=== PATIENT | female | born 1950 | race Caucasian/White ===

== ENCOUNTER 2021-12-23 05:57 | Observation (INO) ==
[2021-12-23] MEDS ORDERED: ASPIRIN CHEW 81 MG TABLET PO STA (06:06)
[2021-12-23] MEDS ORDERED: NITROGLYCERIN 2% OINT 1 INCH/GM PACK TOP STA (06:06)
[2021-12-23] MEDS ORDERED: MORPHINE 10 MG/1 ML VIAL IV STA (06:07)
[2021-12-23] MEDS ORDERED: ONDANSETRON 4 MG/2 ML VIAL IV STA (06:07)
[2021-12-23] MEDS ORDERED: MORPHINE 2 MG/1 ML SYRINGE IV STA (06:08)
[2021-12-23 06:36] LABS: Basophils # 0.1 10*3/uL (0.0-0.2); Basophils % 0.8 % (0.0-0.8); Eosinophils # 0.2 10*3/uL (0.0-0.87); Eosinophils % 2.5 % (0.00-10.9); Hematocrit 39.2 VOL% (35.7-47.0); Hemoglobin 13.8 GM/DL (12.0-16.0); Immature Granulocytes % 0.3 %; Immature Granulocytes Absolute 0.02 #; Lymphocytes # 2.3 10*3/uL (1.4-4.0); Lymphocytes % 29.1 % (21.3-54.2); Mean Corpuscular HGB Conc 35.2 GM/DL (32-36); Monocytes # 0.8 10*3/uL (0.11-0.8); Monocytes % 10.4 % (1.7-12.7); Neutrophils % 56.9 % (38.7-73.9); Platelet Count 153 T/CUMM (130-400); Red Blood Count 3.88 MC/CUMM (3.8-5.5); Red Cell Distribution Width 13.5 % (9.3-17.3)
[2021-12-23 06:53] LABS: INR 1.1; PT Patient Result 11.6 SECS (10.5-12.0); Partial Thromboplastin Time 23.7 SECS (23.8-32.1)
[2021-12-23 06:58] LABS: Albumin 3.6 G/DL (3.4-5.0); Bilirubin,Total 0.8 MG/DL (0.20-1.00); Calcium 8.9 MG/DL (8.5-10.1); Osmolality,Calculated 268.4 MOS/KG (273-304); Potassium 4.4 MMOL/L (3.5-5.1)
[2021-12-23] MEDS ORDERED: ONDANSETRON 4 MG/2 ML VIAL IV PRN (07:38)
[2021-12-23] MEDS ORDERED: GLUCAGON 1 MG VIAL IM PRN (07:38)
[2021-12-23 08:12] LABS: RBC,Urine 1 /HPF (0-4); Squamous Epithelial Cell,Urine Occasional /HPF (0-10)
[2021-12-23 08:13] LABS: Bilirubin,Urine Negative (Negative); Blood, Urine Negative (Negative); Glucose,Urine (UA) Negative (Negative); Ketones,Urine Negative (Negative); Nitrite,Urine Negative (Negative); Protein,Urine Negative (Negative); Urine Appearance Clear (Clear); Urine Color Yellow (Yellow); Urine Specific Gravity 1.015 (1.001-1.035); Urine Urobilinogen 0.2 eU/dL (<2.0)
[2021-12-23] MEDS ORDERED: DEXTROSE 10% 250 ML BAG IV PRN (08:18)
[2021-12-23] MEDS: DOCUSATE SODIUM 100 MG CAPSULE PO SCH ×2 (08:43→20:55)
[2021-12-23] MEDS: PANTOPRAZOLE 40 MG TABLET PO SCH (08:44)
[2021-12-23] MEDS: POLYETHYLENE GLYCOL POWDER 17 GM PACK PO SCH (09:01)
[2021-12-23] MEDS: NICOTINE 21 MG/24 HR PATCH TRANSDERM SCH (09:01)
[2021-12-23] MEDS ORDERED: FUROSEMIDE 40 MG/4 ML VIAL IV ONE (10:32)
[2021-12-23] MEDS: carvediloL 3.125 MG TABLET PO SCH ×2 (11:25→20:55)
[2021-12-23] MEDS: lisinopriL 20 MG TABLET PO SCH (11:25)
[2021-12-23] MEDS: traZODone 50 MG TABLET PO SCH (20:55)
[2021-12-23] MEDS: APIXABAN 2.5 MG TABLET PO SCH (20:55)
[2021-12-23] MEDS: risperiDONE 0.5 MG TABLET PO SCH (21:13)
[2021-12-24 04:36] LABS: Basophils # 0.1 10*3/uL (0.0-0.2); Basophils % 0.7 % (0.0-0.8); Eosinophils # 0.2 10*3/uL (0.0-0.87); Eosinophils % 2.9 % (0.00-10.9); Immature Granulocytes % 0.4 %; Immature Granulocytes Absolute 0.03 #; Lymphocytes # 1.7 10*3/uL (1.4-4.0); Lymphocytes % 24.5 % (21.3-54.2); Mean Corpuscular HGB Conc 34.3 GM/DL (32-36); Mean Corpuscular Volume 101.7 FL (87-102); Mean Platelet Volume 10.2 FL (9.6-12.0); Monocytes # 0.8 10*3/uL (0.11-0.8); Monocytes % 11.7 % (1.7-12.7); Neutrophils % 59.8 % (38.7-73.9); Platelet Count 143 T/CUMM (130-400); Red Blood Count 3.44 MC/CUMM (3.8-5.5); Red Cell Distribution Width 13.5 % (9.3-17.3)
[2021-12-24 05:05] LABS: Calcium 8.9 MG/DL (8.5-10.1); Osmolality,Calculated 269.2 MOS/KG (273-304); Potassium 3.7 MMOL/L (3.5-5.1)
[2021-12-24] MEDS ORDERED: FUROSEMIDE 40 MG/4 ML VIAL IV SCH (09:00)
[2021-12-24] MEDS: DOCUSATE SODIUM 100 MG CAPSULE PO SCH ×2 (09:58→20:12)
[2021-12-24] MEDS: POLYETHYLENE GLYCOL POWDER 17 GM PACK PO SCH (09:59)
[2021-12-24] MEDS: PANTOPRAZOLE 40 MG TABLET PO SCH (09:59)
[2021-12-24] MEDS: lisinopriL 20 MG TABLET PO SCH (09:59)
[2021-12-24] MEDS: carvediloL 3.125 MG TABLET PO SCH (09:59)
[2021-12-24] MEDS: APIXABAN 2.5 MG TABLET PO SCH ×2 (09:59→20:14)
[2021-12-24] MEDS: ROSUVASTATIN 10 MG TABLET PO SCH (09:59)
[2021-12-24] MEDS: NICOTINE 21 MG/24 HR PATCH TRANSDERM SCH ×2 (10:00→16:16)
[2021-12-24] MEDS: risperiDONE 0.25 MG TABLET PO SCH (10:02)
[2021-12-24] MEDS: ACETAMINOPHEN 325 MG TABLET PO PRN ×2 (10:03→20:13)
[2021-12-24] MEDS ORDERED: MAGNESIUM CITRATE 300 ML BOTTLE PO ONE (17:00)
[2021-12-24] MEDS: risperiDONE 0.5 MG TABLET PO SCH (20:12)
[2021-12-24] MEDS: carvediloL 6.25 MG TABLET PO SCH (20:12)
[2021-12-24] MEDS: traZODone 50 MG TABLET PO SCH (20:13)
[2021-12-25] MEDS ORDERED: MIDAZOLAM 10 MG/2 ML VIAL ONE (07:09)
[2021-12-25] MEDS ORDERED: MEPERIDINE 25 MG/1 ML VIAL ONE (07:09)
[2021-12-25] MEDS ORDERED: MIDAZOLAM 10 MG/2 ML VIAL IV ONE (07:25)
[2021-12-25] MEDS ORDERED: DAPAGLIFLOZIN 10 MG TABLET PO SCH (09:00)
[2021-12-25] MEDS ORDERED: FUROSEMIDE 40 MG TABLET PO SCH (09:00)
[2021-12-25 09:05] LABS: Calcium 8.9 MG/DL (8.5-10.1); Osmolality,Calculated 270.1 MOS/KG (273-304); Potassium 3.6 MMOL/L (3.5-5.1)
[2021-12-25] MEDS: risperiDONE 0.25 MG TABLET PO SCH (10:10)
[2021-12-25] MEDS: carvediloL 6.25 MG TABLET PO SCH (10:10)
[2021-12-25] MEDS: ROSUVASTATIN 10 MG TABLET PO SCH (10:10)
[2021-12-25] MEDS: PANTOPRAZOLE 40 MG TABLET PO SCH (10:11)
[2021-12-25] MEDS: POLYETHYLENE GLYCOL POWDER 17 GM PACK PO SCH (10:11)
[2021-12-25] MEDS: DOCUSATE SODIUM 100 MG CAPSULE PO SCH (10:11)
[2021-12-25] MEDS: APIXABAN 2.5 MG TABLET PO SCH (10:11)
[2021-12-25] MEDS: ACETAMINOPHEN 325 MG TABLET PO PRN (10:12)
[2021-12-25] MEDS: NICOTINE 21 MG/24 HR PATCH TRANSDERM SCH (10:13)
[2021-12-25 11:49] VITALS: BP 138/84
== END 2021-12-25 12:01 | disposition home health service (06) ==
LOC: N.EDINP 05:57 → N.ED 05:57 → N.TELEN 20:33
PROVIDERS: ADMIT Internal Medicine; ATTEND Internal Medicine

== ENCOUNTER 2022-02-24 14:39 | Inpatient (IN) ==
[2022-02-24] MEDS ORDERED: NICOTINE 21 MG/24 HR PATCH TRANSDERM PRN (17:54)
[2022-02-24] MEDS ORDERED: BISACODYL 5 MG TABLET PO PRN (17:54)
[2022-02-24] MEDS ORDERED: CALCIUM CARBONATE CHEW 500 MG TABLET PO PRN (17:54)
[2022-02-24] MEDS ORDERED: DOCUSATE SODIUM 100 MG CAPSULE PO PRN (17:54)
[2022-02-24] MEDS ORDERED: SIMETHICONE CHEW 125 MG TABLET PO PRN (17:54)
[2022-02-24] MEDS ORDERED: GLUCAGON 1 MG VIAL IM PRN (17:54)
[2022-02-24] MEDS ORDERED: DEXTROSE 10% 250 ML BAG IV PRN (18:06)
[2022-02-24] MEDS: ACETAMINOPHEN 325 MG TABLET PO PRN (18:40)
[2022-02-24] MEDS: APIXABAN 2.5 MG TABLET PO SCH (20:15)
[2022-02-24] MEDS: diphenhydrAMINE CAP 25 MG CAPSULE PO PRN (20:15)
[2022-02-24] MEDS: DOCUSATE SODIUM 100 MG CAPSULE PO SCH (20:18)
[2022-02-24] MEDS: MELATONIN 3 MG TABLET PO PRN (20:50)
[2022-02-25] MEDS: diphenhydrAMINE CAP 25 MG CAPSULE PO PRN (02:50)
[2022-02-25 03:24] LABS: Bilirubin,Urine Negative (Negative); Blood, Urine Negative (Negative); Glucose,Urine (UA) Negative (Negative); Ketones,Urine Negative (Negative); Nitrite,Urine Negative (Negative); Protein,Urine Negative (Negative); RBC,Urine <1 /HPF (0-4); Squamous Epithelial Cell,Urine Occasional /HPF (0-10); Urine Appearance Clear (Clear); Urine Color Yellow (Yellow); Urine Specific Gravity 1.015 (1.001-1.035); Urine Urobilinogen 0.2 eU/dL (<2.0)
[2022-02-25 05:45] LABS: Basophils # 0.1 10*3/uL (0.0-0.2); Basophils % 1.1 % (0.0-0.8); Eosinophils # 0.2 10*3/uL (0.0-0.87); Eosinophils % 2.8 % (0.00-10.9); Hematocrit 36.3 VOL% (35.7-47.0); Hemoglobin 12.4 GM/DL (12.0-16.0); Immature Granulocytes % 0.3 %; Immature Granulocytes Absolute 0.02 #; Lymphocytes # 2.2 10*3/uL (1.4-4.0); Lymphocytes % 30.3 % (21.3-54.2); Mean Corpuscular HGB Conc 34.2 GM/DL (32-36); Mean Corpuscular Volume 101.7 FL (87-102); Monocytes # 0.7 10*3/uL (0.11-0.8); Monocytes % 10.2 % (1.7-12.7); Neutrophils % 55.3 % (38.7-73.9); Platelet Count 139 T/CUMM (130-400); Red Blood Count 3.57 MC/CUMM (3.8-5.5); Red Cell Distribution Width 13.8 % (9.3-17.3); White Blood Count 7.2 T/CUMM (4-12)
[2022-02-25 06:13] LABS: Albumin 3.5 G/DL (3.4-5.0); Bilirubin,Total 0.9 MG/DL (0.20-1.00); Calcium 9.1 MG/DL (8.5-10.1); Osmolality,Calculated 262.7 MOS/KG (273-304); Potassium 3.6 MMOL/L (3.5-5.1); Thyroid Stimulating Hormone 2.42 uIU/ml (0.358-3.74); Total Protein 6.7 G/DL (6.4-8.2)
[2022-02-25] MEDS: SACUBITRIL/VALSARTAN 49-51 MG TABLET PO SCH ×2 (08:39→20:48)
[2022-02-25] MEDS: APIXABAN 2.5 MG TABLET PO SCH ×2 (08:40→20:48)
[2022-02-25] MEDS: MULTIVITAMIN (CENTRUM) TABLET PO SCH (08:40)
[2022-02-25] MEDS: PANTOPRAZOLE 40 MG TABLET PO SCH (08:40)
[2022-02-25] MEDS: FOLIC ACID 1 MG TABLET PO SCH (08:40)
[2022-02-25] MEDS: CHOLECALCIFEROL 1,000 UNIT TABLET PO SCH (08:41)
[2022-02-25] MEDS: DOCUSATE SODIUM 100 MG CAPSULE PO SCH ×2 (08:42→20:48)
[2022-02-25] MEDS: FUROSEMIDE 40 MG/4 ML VIAL IV SCH ×2 (08:42→17:15)
[2022-02-25] MEDS: ACETAMINOPHEN 325 MG TABLET PO PRN (08:48)
[2022-02-25] MEDS: ALBUTEROL/IPRATROPIUM 3 ML NEB RESP TX SCH ×3 (11:04→20:01)
[2022-02-26] MEDS: ALBUTEROL/IPRATROPIUM 3 ML NEB RESP TX SCH ×7 (01:20→23:45)
[2022-02-26 05:21] LABS: Basophils # 0.1 10*3/uL (0.0-0.2); Basophils % 0.8 % (0.0-0.8); Eosinophils # 0.2 10*3/uL (0.0-0.87); Hematocrit 40.4 VOL% (35.7-47.0); Hemoglobin 13.8 GM/DL (12.0-16.0); Immature Granulocytes % 0.2 %; Immature Granulocytes Absolute 0.02 #; Lymphocytes # 2.1 10*3/uL (1.4-4.0); Lymphocytes % 23.2 % (21.3-54.2); Mean Corpuscular HGB Conc 34.2 GM/DL (32-36); Mean Corpuscular Volume 99.5 FL (87-102); Mean Platelet Volume 10.2 FL (9.6-12.0); Monocytes % 11.2 % (1.7-12.7); Neutrophils % 62.6 % (38.7-73.9); Platelet Count 153 T/CUMM (130-400); Red Blood Count 4.06 MC/CUMM (3.8-5.5); Red Cell Distribution Width 13.2 % (9.3-17.3); White Blood Count 9.1 T/CUMM (4-12)
[2022-02-26 05:40] LABS: Calcium 9.5 MG/DL (8.5-10.1); Osmolality,Calculated 266.4 MOS/KG (273-304); Potassium 3.1 MMOL/L (3.5-5.1)
[2022-02-26] MEDS ORDERED: MAGNESIUM SULF RIDER 2 GM/50 ML PREMIX IV ONE (08:17)
[2022-02-26] MEDS: DOCUSATE SODIUM 100 MG CAPSULE PO SCH ×2 (08:44→23:23)
[2022-02-26] MEDS: MULTIVITAMIN (CENTRUM) TABLET PO SCH (08:44)
[2022-02-26] MEDS: POTASSIUM CHLORIDE 20 MEQ TABLET PO SCH ×2 (08:44→10:30)
[2022-02-26] MEDS: SOTALOL 80 MG TABLET PO SCH ×2 (08:44→21:56)
[2022-02-26] MEDS: CHOLECALCIFEROL 1,000 UNIT TABLET PO SCH (08:45)
[2022-02-26] MEDS: FOLIC ACID 1 MG TABLET PO SCH (08:45)
[2022-02-26] MEDS: PANTOPRAZOLE 40 MG TABLET PO SCH (08:45)
[2022-02-26] MEDS: APIXABAN 2.5 MG TABLET PO SCH (08:45)
[2022-02-26] MEDS: SACUBITRIL/VALSARTAN 49-51 MG TABLET PO SCH ×2 (08:45→21:57)
[2022-02-26] MEDS: FUROSEMIDE 40 MG/4 ML VIAL IV SCH ×2 (09:02→15:20)
[2022-02-26] MEDS ORDERED: POTASSIUM CHLORIDE 20 MEQ TABLET PO ONE (15:29)
[2022-02-26] MEDS: ACETAMINOPHEN 325 MG TABLET PO PRN (15:42)
[2022-02-26] MEDS: diphenhydrAMINE CAP 25 MG CAPSULE PO PRN (21:56)
[2022-02-26] MEDS: MELATONIN 3 MG TABLET PO PRN (21:56)
[2022-02-27] MEDS: ALBUTEROL/IPRATROPIUM 3 ML NEB RESP TX SCH ×5 (02:59→19:04)
[2022-02-27 06:23] LABS: Basophils # 0.1 10*3/uL (0.0-0.2); Basophils % 1.1 % (0.0-0.8); Eosinophils # 0.2 10*3/uL (0.0-0.87); Eosinophils % 2.4 % (0.00-10.9); Hematocrit 44.3 VOL% (35.7-47.0); Hemoglobin 15.6 GM/DL (12.0-16.0); Immature Granulocytes % 0.3 %; Immature Granulocytes Absolute 0.03 #; Lymphocytes # 2.5 10*3/uL (1.4-4.0); Lymphocytes % 26.4 % (21.3-54.2); Mean Corpuscular HGB Conc 35.2 GM/DL (32-36); Mean Corpuscular Volume 98.2 FL (87-102); Monocytes # 1.2 10*3/uL (0.11-0.8); Monocytes % 12.4 % (1.7-12.7); Neutrophils % 57.4 % (38.7-73.9); Platelet Count 165 T/CUMM (130-400); Red Blood Count 4.51 MC/CUMM (3.8-5.5); Red Cell Distribution Width 13.1 % (9.3-17.3); White Blood Count 9.4 T/CUMM (4-12)
[2022-02-27 06:35] LABS: Calcium 9.5 MG/DL (8.5-10.1); Osmolality,Calculated 263.8 MOS/KG (273-304); Potassium 3.5 MMOL/L (3.5-5.1)
[2022-02-27] MEDS ORDERED: POTASSIUM CHLORIDE 20 MEQ TABLET PO ONE (07:26)
[2022-02-27] MEDS: MULTIVITAMIN (CENTRUM) TABLET PO SCH (09:47)
[2022-02-27] MEDS: SOTALOL 80 MG TABLET PO SCH ×2 (09:47→20:17)
[2022-02-27] MEDS: FOLIC ACID 1 MG TABLET PO SCH (09:48)
[2022-02-27] MEDS: APIXABAN 2.5 MG TABLET PO SCH ×2 (09:48→20:17)
[2022-02-27] MEDS: PANTOPRAZOLE 40 MG TABLET PO SCH (09:48)
[2022-02-27] MEDS: FUROSEMIDE 40 MG/4 ML VIAL IV SCH ×2 (09:48→16:48)
[2022-02-27] MEDS: SACUBITRIL/VALSARTAN 49-51 MG TABLET PO SCH ×2 (09:48→20:18)
[2022-02-27] MEDS: CHOLECALCIFEROL 1,000 UNIT TABLET PO SCH (09:48)
[2022-02-27] MEDS: DOCUSATE SODIUM 100 MG CAPSULE PO SCH ×2 (09:55→20:17)
[2022-02-28] MEDS: ACETAMINOPHEN 325 MG TABLET PO PRN (00:22)
[2022-02-28] MEDS: ALBUTEROL/IPRATROPIUM 3 ML NEB RESP TX SCH ×8 (00:32→23:03)
[2022-02-28 05:48] LABS: Basophils # 0.1 10*3/uL (0.0-0.2); Eosinophils # 0.3 10*3/uL (0.0-0.87); Eosinophils % 2.6 % (0.00-10.9); Hematocrit 44.3 VOL% (35.7-47.0); Hemoglobin 15.5 GM/DL (12.0-16.0); Immature Granulocytes % 0.5 %; Immature Granulocytes Absolute 0.06 #; Lymphocytes # 2.5 10*3/uL (1.4-4.0); Lymphocytes % 22.1 % (21.3-54.2); Mean Corpuscular Volume 97.8 FL (87-102); Mean Platelet Volume 10.6 FL (9.6-12.0); Monocytes # 1.2 10*3/uL (0.11-0.8); Monocytes % 11.1 % (1.7-12.7); Neutrophils % 62.7 % (38.7-73.9); Platelet Count 164 T/CUMM (130-400); Red Blood Count 4.53 MC/CUMM (3.8-5.5); White Blood Count 11.2 T/CUMM (4-12)
[2022-02-28 06:06] LABS: Calcium 9.1 MG/DL (8.5-10.1); Osmolality,Calculated 266.8 MOS/KG (273-304); Potassium 3.6 MMOL/L (3.5-5.1)
[2022-02-28] MEDS ORDERED: POTASSIUM CHLORIDE 20 MEQ TABLET PO ONE (07:40)
[2022-02-28] MEDS: FUROSEMIDE 40 MG/4 ML VIAL IV SCH ×2 (08:08→16:01)
[2022-02-28] MEDS ORDERED: LOPERAMIDE 2 MG CAPSULE PO PRN (09:11)
[2022-02-28] MEDS: MULTIVITAMIN (CENTRUM) TABLET PO SCH (09:21)
[2022-02-28] MEDS: FOLIC ACID 1 MG TABLET PO SCH (09:21)
[2022-02-28] MEDS: SOTALOL 80 MG TABLET PO SCH ×2 (09:21→21:11)
[2022-02-28] MEDS: CHOLECALCIFEROL 1,000 UNIT TABLET PO SCH (09:22)
[2022-02-28] MEDS: DOCUSATE SODIUM 100 MG CAPSULE PO SCH ×2 (09:22→21:11)
[2022-02-28] MEDS: APIXABAN 2.5 MG TABLET PO SCH (09:22)
[2022-02-28] MEDS: SACUBITRIL/VALSARTAN 49-51 MG TABLET PO SCH ×2 (09:22→21:11)
[2022-02-28] MEDS: PANTOPRAZOLE 40 MG TABLET PO SCH (09:22)
[2022-02-28] MEDS: ENOXAPARIN 60 MG/0.6 ML SYRINGE SUBCUT SCH (21:12)
[2022-02-28] MEDS: MELATONIN 3 MG TABLET PO PRN (21:42)
[2022-03-01] MEDS: ALBUTEROL/IPRATROPIUM 3 ML NEB RESP TX SCH ×6 (04:09→23:28)
[2022-03-01 05:13] LABS: Basophils # 0.1 10*3/uL (0.0-0.2); Basophils % 0.9 % (0.0-0.8); Eosinophils # 0.2 10*3/uL (0.0-0.87); Eosinophils % 2.7 % (0.00-10.9); Hematocrit 45.1 VOL% (35.7-47.0); Hemoglobin 15.9 GM/DL (12.0-16.0); Immature Granulocytes % 0.2 %; Immature Granulocytes Absolute 0.02 #; Lymphocytes # 1.7 10*3/uL (1.4-4.0); Lymphocytes % 20.1 % (21.3-54.2); Mean Corpuscular HGB Conc 35.3 GM/DL (32-36); Mean Corpuscular Volume 97.6 FL (87-102); Mean Platelet Volume 10.6 FL (9.6-12.0); Monocytes % 11.5 % (1.7-12.7); Neutrophils % 64.6 % (38.7-73.9); Platelet Count 156 T/CUMM (130-400); Red Blood Count 4.62 MC/CUMM (3.8-5.5); Red Cell Distribution Width 12.8 % (9.3-17.3); White Blood Count 8.4 T/CUMM (4-12)
[2022-03-01 05:28] LABS: Calcium 9.7 MG/DL (8.5-10.1); Osmolality,Calculated 264.9 MOS/KG (273-304); Potassium 3.8 MMOL/L (3.5-5.1)
[2022-03-01] MEDS ORDERED: metOLazone 2.5 MG TABLET PO ONE (08:32)
[2022-03-01] MEDS: DOCUSATE SODIUM 100 MG CAPSULE PO SCH ×2 (09:39→21:09)
[2022-03-01] MEDS: MULTIVITAMIN (CENTRUM) TABLET PO SCH (09:39)
[2022-03-01] MEDS: CHOLECALCIFEROL 1,000 UNIT TABLET PO SCH (09:39)
[2022-03-01] MEDS: ACETAMINOPHEN 325 MG TABLET PO PRN (09:39)
[2022-03-01] MEDS: SOTALOL 80 MG TABLET PO SCH (09:40)
[2022-03-01] MEDS: FOLIC ACID 1 MG TABLET PO SCH (09:41)
[2022-03-01] MEDS: PANTOPRAZOLE 40 MG TABLET PO SCH (09:41)
[2022-03-01] MEDS: ENOXAPARIN 60 MG/0.6 ML SYRINGE SUBCUT SCH ×2 (09:42→21:09)
[2022-03-01] MEDS: SACUBITRIL/VALSARTAN 49-51 MG TABLET PO SCH ×2 (09:47→21:09)
[2022-03-01] MEDS: FUROSEMIDE 40 MG/4 ML VIAL IV SCH ×2 (09:48→16:05)
[2022-03-01] MEDS ORDERED: MAGNESIUM SULF RIDER 2 GM/50 ML PREMIX IV ONE (10:47)
[2022-03-01] MEDS ORDERED: KETOROLAC 15 MG/1 ML VIAL IV ONE (11:48)
[2022-03-02] MEDS: ALBUTEROL/IPRATROPIUM 3 ML NEB RESP TX SCH ×5 (04:06→19:45)
[2022-03-02 04:59] LABS: Basophils # 0.1 10*3/uL (0.0-0.2); Basophils % 1.4 % (0.0-0.8); Eosinophils # 0.3 10*3/uL (0.0-0.87); Eosinophils % 3.7 % (0.00-10.9); Hematocrit 42.5 VOL% (35.7-47.0); Hemoglobin 15.3 GM/DL (12.0-16.0); Immature Granulocytes % 0.4 %; Immature Granulocytes Absolute 0.03 #; Lymphocytes # 2.2 10*3/uL (1.4-4.0); Lymphocytes % 28.6 % (21.3-54.2); Mean Corpuscular Volume 96.2 FL (87-102); Mean Platelet Volume 10.5 FL (9.6-12.0); Monocytes # 1.6 10*3/uL (0.11-0.8); Monocytes % 20.2 % (1.7-12.7); Neutrophils % 45.7 % (38.7-73.9); Platelet Count 150 T/CUMM (130-400); Red Blood Count 4.42 MC/CUMM (3.8-5.5); Red Cell Distribution Width 12.5 % (9.3-17.3); White Blood Count 7.8 T/CUMM (4-12)
[2022-03-02 05:16] LABS: Calcium 9.3 MG/DL (8.5-10.1); Osmolality,Calculated 257.6 MOS/KG (273-304); Potassium 3.4 MMOL/L (3.5-5.1)
[2022-03-02 05:22] LABS: Eosinophils 1 % (0-10); Lymphocytes 29 % (20-55); Total Cells Counted 100
[2022-03-02 05:23] LABS: Atypical Lymphocytes Few
[2022-03-02] MEDS: ENOXAPARIN 60 MG/0.6 ML SYRINGE SUBCUT SCH (08:25)
[2022-03-02] MEDS: MULTIVITAMIN (CENTRUM) TABLET PO SCH (08:25)
[2022-03-02] MEDS: SACUBITRIL/VALSARTAN 49-51 MG TABLET PO SCH ×2 (08:25→21:30)
[2022-03-02] MEDS: FOLIC ACID 1 MG TABLET PO SCH (08:25)
[2022-03-02] MEDS: DOCUSATE SODIUM 100 MG CAPSULE PO SCH ×2 (08:25→21:30)
[2022-03-02] MEDS: CHOLECALCIFEROL 1,000 UNIT TABLET PO SCH (08:25)
[2022-03-02] MEDS: PANTOPRAZOLE 40 MG TABLET PO SCH (08:25)
[2022-03-02] MEDS: FUROSEMIDE 40 MG/4 ML VIAL IV SCH ×2 (08:26→16:51)
[2022-03-02] MEDS ORDERED: VANCOMYCIN 500 MG VIAL IRRIG ONE (13:11)
[2022-03-02] MEDS ORDERED: VANCOMYCIN INJ 500 MG in SODIUM CHLORIDE 0.9% 100 ML IV ONE (13:11)
[2022-03-02] MEDS ORDERED: DIAZEPAM 5 MG TABLET PO ONE (13:11)
[2022-03-02] MEDS ORDERED: diphenhydrAMINE CAP 25 MG CAPSULE PO ONE (13:11)
[2022-03-02] MEDS ORDERED: TISSUE ADHESIVE 1 EACH APPLICATOR TOP ONE ×2 (13:14→13:40)
[2022-03-02] MEDS ORDERED: DEXTROSE 5% NACL 0.45% 1,000 ML IV SCH (13:30)
[2022-03-02] MEDS ORDERED: DIAZEPAM 5 MG TABLET ONE (13:35)
[2022-03-02] MEDS ORDERED: diphenhydrAMINE CAP 25 MG CAPSULE ONE (13:35)
[2022-03-02] MEDS ORDERED: VANCOMYCIN 500 MG VIAL ONE (13:40)
[2022-03-02] MEDS ORDERED: fentaNYL 100 MCG/2 ML VIAL ONE (14:23)
[2022-03-02] MEDS ORDERED: MIDAZOLAM 2 MG/2 ML VIAL ONE (14:23)
[2022-03-02] MEDS: diphenhydrAMINE CAP 25 MG CAPSULE PO PRN (16:47)
[2022-03-02] MEDS: MELATONIN 3 MG TABLET PO PRN (21:30)
[2022-03-03] MEDS: ALBUTEROL/IPRATROPIUM 3 ML NEB RESP TX SCH ×6 (00:55→19:29)
[2022-03-03 05:19] LABS: Basophils # 0.1 10*3/uL (0.0-0.2); Basophils % 1.2 % (0.0-0.8); Eosinophils # 0.2 10*3/uL (0.0-0.87); Eosinophils % 2.5 % (0.00-10.9); Hematocrit 38.1 VOL% (35.7-47.0); Hemoglobin 13.5 GM/DL (12.0-16.0); Immature Granulocytes % 0.3 %; Immature Granulocytes Absolute 0.03 #; Lymphocytes # 2.5 10*3/uL (1.4-4.0); Lymphocytes % 28.4 % (21.3-54.2); Mean Corpuscular HGB Conc 35.4 GM/DL (32-36); Mean Corpuscular Volume 97.4 FL (87-102); Mean Platelet Volume 11.3 FL (9.6-12.0); Monocytes # 1.4 10*3/uL (0.11-0.8); Monocytes % 16.6 % (1.7-12.7); Platelet Count 141 T/CUMM (130-400); Red Blood Count 3.91 MC/CUMM (3.8-5.5); Red Cell Distribution Width 12.7 % (9.3-17.3); White Blood Count 8.7 T/CUMM (4-12)
[2022-03-03 05:41] LABS: Calcium 8.9 MG/DL (8.5-10.1); Osmolality,Calculated 254.2 MOS/KG (273-304); Potassium 3.5 MMOL/L (3.5-5.1)
[2022-03-03 05:46] LABS: Eosinophils 9 % (0-10); Lymphocytes 20 % (20-55); Platelet Estimate Adequate; Total Cells Counted 100
[2022-03-03 05:47] LABS: Atypical Lymphocytes Few
[2022-03-03] MEDS: SACUBITRIL/VALSARTAN 49-51 MG TABLET PO SCH ×3 (08:09→20:08)
[2022-03-03] MEDS: DOCUSATE SODIUM 100 MG CAPSULE PO SCH ×2 (08:39→20:36)
[2022-03-03] MEDS: CHOLECALCIFEROL 1,000 UNIT TABLET PO SCH (08:39)
[2022-03-03] MEDS: MULTIVITAMIN (CENTRUM) TABLET PO SCH (08:39)
[2022-03-03] MEDS: PANTOPRAZOLE 40 MG TABLET PO SCH (08:39)
[2022-03-03] MEDS: FOLIC ACID 1 MG TABLET PO SCH (08:39)
[2022-03-03] MEDS: SODIUM CHLORIDE 0.9% 1,000 ML IV SCH (09:09)
[2022-03-03] MEDS: SOTALOL 80 MG TABLET PO SCH ×2 (09:19→20:08)
[2022-03-03] MEDS ORDERED: MEPERIDINE 25 MG/1 ML VIAL IV ONE (10:25)
[2022-03-03] MEDS ORDERED: HYDROmorphone 1 MG/1 ML SYRINGE IV ONE (21:35)
[2022-03-03 22:24] LABS: Basophils # 0.1 10*3/uL (0.0-0.2); Basophils % 0.8 % (0.0-0.8); Eosinophils # 0.2 10*3/uL (0.0-0.87); Hematocrit 33.9 VOL% (35.7-47.0); Immature Granulocytes % 0.6 %; Immature Granulocytes Absolute 0.06 #; Lymphocytes # 1.7 10*3/uL (1.4-4.0); Lymphocytes % 15.7 % (21.3-54.2); Mean Corpuscular HGB Conc 35.4 GM/DL (32-36); Mean Corpuscular Volume 96.3 FL (87-102); Mean Platelet Volume 11.1 FL (9.6-12.0); Monocytes # 1.3 10*3/uL (0.11-0.8); Neutrophils % 68.9 % (38.7-73.9); Platelet Count 153 T/CUMM (130-400); Red Blood Count 3.52 MC/CUMM (3.8-5.5); Red Cell Distribution Width 12.4 % (9.3-17.3); White Blood Count 10.5 T/CUMM (4-12)
[2022-03-04] MEDS: ALBUTEROL/IPRATROPIUM 3 ML NEB RESP TX SCH ×6 (00:13→19:03)
[2022-03-04 05:36] LABS: Basophils # 0.1 10*3/uL (0.0-0.2); Basophils % 0.4 % (0.0-0.8); Eosinophils # 0.1 10*3/uL (0.0-0.87); Eosinophils % 0.8 % (0.00-10.9); Hematocrit 31.4 VOL% (35.7-47.0); Hemoglobin 11.5 GM/DL (12.0-16.0); Immature Granulocytes % 0.4 %; Immature Granulocytes Absolute 0.05 #; Lymphocytes # 1.8 10*3/uL (1.4-4.0); Lymphocytes % 14.5 % (21.3-54.2); Mean Corpuscular HGB Conc 36.6 GM/DL (32-36); Mean Corpuscular Volume 95.2 FL (87-102); Mean Platelet Volume 11.8 FL (9.6-12.0); Monocytes # 2.1 10*3/uL (0.11-0.8); Monocytes % 16.2 % (1.7-12.7); Neutrophils % 67.7 % (38.7-73.9); Platelet Count 110 T/CUMM (130-400); Red Cell Distribution Width 12.4 % (9.3-17.3); White Blood Count 12.7 T/CUMM (4-12)
[2022-03-04 05:52] LABS: Calcium 8.8 MG/DL (8.5-10.1); Osmolality,Calculated 260.1 MOS/KG (273-304); Potassium 3.5 MMOL/L (3.5-5.1)
[2022-03-04] MEDS: SODIUM CHLORIDE 0.9% 1,000 ML IV SCH ×2 (06:26→13:58)
[2022-03-04 06:27] LABS: Eosinophils 1 % (0-10); Lymphocytes 12 % (20-55); Platelet Estimate Normal; Total Cells Counted 100
[2022-03-04] MEDS: SACUBITRIL/VALSARTAN 49-51 MG TABLET PO SCH (10:01)
[2022-03-04] MEDS: MULTIVITAMIN (CENTRUM) TABLET PO SCH (10:01)
[2022-03-04] MEDS: FOLIC ACID 1 MG TABLET PO SCH (10:02)
[2022-03-04] MEDS: PANTOPRAZOLE 40 MG TABLET PO SCH (10:02)
[2022-03-04] MEDS: DOCUSATE SODIUM 100 MG CAPSULE PO SCH ×2 (10:03→20:28)
[2022-03-04] MEDS: SOTALOL 80 MG TABLET PO SCH (10:03)
[2022-03-04] MEDS: CHOLECALCIFEROL 1,000 UNIT TABLET PO SCH (10:03)
[2022-03-04] MEDS: diphenhydrAMINE CAP 25 MG CAPSULE PO PRN ×2 (11:46→15:50)
[2022-03-04] MEDS: HYDROmorphone 1 MG/1 ML SYRINGE IV PRN ×2 (11:47→15:52)
[2022-03-04] MEDS: ONDANSETRON 4 MG/2 ML VIAL IV PRN ×2 (12:01→15:50)
[2022-03-05] MEDS: ALBUTEROL/IPRATROPIUM 3 ML NEB RESP TX SCH ×6 (00:09→19:34)
[2022-03-05] MEDS: HYDROmorphone 1 MG/1 ML SYRINGE IV PRN ×2 (05:55→17:33)
[2022-03-05 06:07] LABS: Calcium 9.1 MG/DL (8.5-10.1); Osmolality,Calculated 263.9 MOS/KG (273-304); Potassium 3.8 MMOL/L (3.5-5.1)
[2022-03-05] MEDS: PANTOPRAZOLE 40 MG TABLET PO SCH (09:48)
[2022-03-05] MEDS: MULTIVITAMIN (CENTRUM) TABLET PO SCH (09:48)
[2022-03-05] MEDS: CHOLECALCIFEROL 1,000 UNIT TABLET PO SCH (09:48)
[2022-03-05] MEDS: FOLIC ACID 1 MG TABLET PO SCH (09:48)
[2022-03-05] MEDS: SODIUM CHLORIDE 0.9% 1,000 ML IV SCH ×3 (09:48→17:26)
[2022-03-05] MEDS: DOCUSATE SODIUM 100 MG CAPSULE PO SCH ×2 (09:49→21:15)
[2022-03-05] MEDS: diphenhydrAMINE CAP 25 MG CAPSULE PO PRN ×2 (12:43→17:32)
[2022-03-06] MEDS: SODIUM CHLORIDE 0.9% 1,000 ML IV SCH ×5 (00:07→17:10)
[2022-03-06] MEDS: ALBUTEROL/IPRATROPIUM 3 ML NEB RESP TX SCH ×4 (00:25→20:00)
[2022-03-06 05:05] LABS: Basophils # 0.1 10*3/uL (0.0-0.2); Basophils % 0.5 % (0.0-0.8); Eosinophils # 0.1 10*3/uL (0.0-0.87); Eosinophils % 1.2 % (0.00-10.9); Hematocrit 21.2 VOL% (35.7-47.0); Hemoglobin 7.4 GM/DL (12.0-16.0); Immature Granulocytes % 0.4 %; Immature Granulocytes Absolute 0.04 #; Lymphocytes # 1.8 10*3/uL (1.4-4.0); Lymphocytes % 18.9 % (21.3-54.2); Mean Corpuscular HGB Conc 34.9 GM/DL (32-36); Mean Corpuscular Volume 99.1 FL (87-102); Mean Platelet Volume 11.2 FL (9.6-12.0); Monocytes # 1.5 10*3/uL (0.11-0.8); Monocytes % 15.1 % (1.7-12.7); Neutrophils % 63.9 % (38.7-73.9); Platelet Count 103 T/CUMM (130-400); Red Blood Count 2.14 MC/CUMM (3.8-5.5); Red Cell Distribution Width 12.4 % (9.3-17.3); White Blood Count 9.8 T/CUMM (4-12)
[2022-03-06 05:25] LABS: Calcium 7.9 MG/DL (8.5-10.1); Osmolality,Calculated 276.5 MOS/KG (273-304); Potassium 3.6 MMOL/L (3.5-5.1)
[2022-03-06] MEDS: MULTIVITAMIN (CENTRUM) TABLET PO SCH (09:32)
[2022-03-06] MEDS: FOLIC ACID 1 MG TABLET PO SCH (09:32)
[2022-03-06] MEDS: CHOLECALCIFEROL 1,000 UNIT TABLET PO SCH (09:32)
[2022-03-06] MEDS: PANTOPRAZOLE 40 MG TABLET PO SCH (09:32)
[2022-03-06] MEDS: DOCUSATE SODIUM 100 MG CAPSULE PO SCH ×2 (09:33→21:01)
[2022-03-06] MEDS ORDERED: SODIUM CHLORIDE 0.9% 1,000 ML IV PRN ×3 (11:07→17:01)
[2022-03-06 17:41] LABS: Basophils # 0.1 10*3/uL (0.0-0.2); Basophils % 0.6 % (0.0-0.8); Eosinophils # 0.1 10*3/uL (0.0-0.87); Hematocrit 22.6 VOL% (35.7-47.0); Hemoglobin 7.8 GM/DL (12.0-16.0); Immature Granulocytes % 0.7 %; Immature Granulocytes Absolute 0.07 #; Lymphocytes # 1.8 10*3/uL (1.4-4.0); Lymphocytes % 16.6 % (21.3-54.2); Mean Corpuscular HGB Conc 34.5 GM/DL (32-36); Mean Platelet Volume 10.8 FL (9.6-12.0); Monocytes # 1.7 10*3/uL (0.11-0.8); Monocytes % 15.8 % (1.7-12.7); Neutrophils % 65.3 % (38.7-73.9); Platelet Count 128 T/CUMM (130-400); Red Blood Count 2.26 MC/CUMM (3.8-5.5); Red Cell Distribution Width 12.6 % (9.3-17.3); White Blood Count 10.6 T/CUMM (4-12)
[2022-03-06 18:05] LABS: Platelet Estimate Adequate
[2022-03-06 18:13] LABS: Eosinophils 3 % (0-10); Lymphocytes 16 % (20-55); Total Cells Counted 100
[2022-03-07] MEDS: ALBUTEROL/IPRATROPIUM 3 ML NEB RESP TX SCH ×4 (01:39→19:57)
[2022-03-07] MEDS: SODIUM CHLORIDE 0.9% 1,000 ML IV SCH ×5 (02:57→21:20)
[2022-03-07 04:59] LABS: Basophils # 0.1 10*3/uL (0.0-0.2); Basophils % 0.5 % (0.0-0.8); Eosinophils # 0.2 10*3/uL (0.0-0.87); Eosinophils % 1.4 % (0.00-10.9); Hematocrit 25.7 VOL% (35.7-47.0); Hemoglobin 8.9 GM/DL (12.0-16.0); Immature Granulocytes % 0.3 %; Immature Granulocytes Absolute 0.04 #; Lymphocytes # 2.1 10*3/uL (1.4-4.0); Lymphocytes % 18.1 % (21.3-54.2); Mean Corpuscular HGB Conc 34.6 GM/DL (32-36); Mean Corpuscular Volume 95.9 FL (87-102); Mean Platelet Volume 10.5 FL (9.6-12.0); Monocytes # 1.7 10*3/uL (0.11-0.8); Neutrophils % 64.7 % (38.7-73.9); Platelet Count 143 T/CUMM (130-400); Red Blood Count 2.68 MC/CUMM (3.8-5.5); Red Cell Distribution Width 13.9 % (9.3-17.3); White Blood Count 11.5 T/CUMM (4-12)
[2022-03-07 05:21] LABS: Calcium 8.6 MG/DL (8.5-10.1); Osmolality,Calculated 270.4 MOS/KG (273-304); Potassium 3.7 MMOL/L (3.5-5.1)
[2022-03-07] MEDS: FOLIC ACID 1 MG TABLET PO SCH (08:40)
[2022-03-07] MEDS: PANTOPRAZOLE 40 MG TABLET PO SCH (08:40)
[2022-03-07] MEDS: DOCUSATE SODIUM 100 MG CAPSULE PO SCH ×2 (08:40→20:12)
[2022-03-07] MEDS: MULTIVITAMIN (CENTRUM) TABLET PO SCH (08:40)
[2022-03-07] MEDS: CHOLECALCIFEROL 1,000 UNIT TABLET PO SCH (08:40)
[2022-03-08] MEDS: ALBUTEROL/IPRATROPIUM 3 ML NEB RESP TX SCH ×4 (00:21→19:34)
[2022-03-08] MEDS: diphenhydrAMINE CAP 25 MG CAPSULE PO PRN ×3 (01:50→21:05)
[2022-03-08] MEDS: SODIUM CHLORIDE 0.9% 1,000 ML IV SCH ×2 (05:51→08:30)
[2022-03-08 07:44] LABS: Calcium 8.3 MG/DL (8.5-10.1); Potassium 3.7 MMOL/L (3.5-5.1)
[2022-03-08] MEDS: MULTIVITAMIN (CENTRUM) TABLET PO SCH (08:30)
[2022-03-08] MEDS: DOCUSATE SODIUM 100 MG CAPSULE PO SCH ×2 (08:30→21:05)
[2022-03-08] MEDS: CHOLECALCIFEROL 1,000 UNIT TABLET PO SCH (08:30)
[2022-03-08] MEDS: PANTOPRAZOLE 40 MG TABLET PO SCH (08:30)
[2022-03-08] MEDS: FOLIC ACID 1 MG TABLET PO SCH (08:30)
[2022-03-08] MEDS ORDERED: MAGNESIUM SULF RIDER 4 GM/100 ML PREMIX IV ONE (09:56)
[2022-03-08 12:25] LABS: Basophils # 0.1 10*3/uL (0.0-0.2); Basophils % 0.5 % (0.0-0.8); Eosinophils # 0.2 10*3/uL (0.0-0.87); Hematocrit 26.4 VOL% (35.7-47.0); Hemoglobin 9.2 GM/DL (12.0-16.0); Immature Granulocytes % 0.5 %; Immature Granulocytes Absolute 0.05 #; Lymphocytes % 21.2 % (21.3-54.2); Mean Corpuscular HGB Conc 34.8 GM/DL (32-36); Mean Corpuscular Volume 98.5 FL (87-102); Mean Platelet Volume 9.3 FL (9.6-12.0); Monocytes # 1.2 10*3/uL (0.11-0.8); Monocytes % 12.6 % (1.7-12.7); Neutrophils % 63.2 % (38.7-73.9); Platelet Count 172 T/CUMM (130-400); Red Blood Count 2.68 MC/CUMM (3.8-5.5); Red Cell Distribution Width 14.3 % (9.3-17.3); White Blood Count 9.4 T/CUMM (4-12)
[2022-03-09 05:41] LABS: Basophils # 0.1 10*3/uL (0.0-0.2); Basophils % 0.6 % (0.0-0.8); Eosinophils # 0.1 10*3/uL (0.0-0.87); Eosinophils % 1.1 % (0.00-10.9); Hematocrit 27.4 VOL% (35.7-47.0); Hemoglobin 9.4 GM/DL (12.0-16.0); Immature Granulocytes % 0.6 %; Immature Granulocytes Absolute 0.07 #; Lymphocytes # 1.4 10*3/uL (1.4-4.0); Lymphocytes % 11.2 % (21.3-54.2); Mean Corpuscular HGB Conc 34.3 GM/DL (32-36); Mean Corpuscular Volume 98.2 FL (87-102); Mean Platelet Volume 9.6 FL (9.6-12.0); Monocytes # 1.3 10*3/uL (0.11-0.8); Monocytes % 10.5 % (1.7-12.7); Platelet Count 188 T/CUMM (130-400); Red Blood Count 2.79 MC/CUMM (3.8-5.5); Red Cell Distribution Width 13.9 % (9.3-17.3); White Blood Count 12.3 T/CUMM (4-12)
[2022-03-09 06:07] LABS: Albumin 2.7 G/DL (3.4-5.0); Bilirubin,Total 1.6 MG/DL (0.20-1.00); Calcium 8.5 MG/DL (8.5-10.1); Osmolality,Calculated 266.2 MOS/KG (273-304); Potassium 3.8 MMOL/L (3.5-5.1); Total Protein 6.2 G/DL (6.4-8.2)
[2022-03-09] MEDS: ALBUTEROL/IPRATROPIUM 3 ML NEB RESP TX SCH ×3 (07:26→13:31)
[2022-03-09] MEDS: ONDANSETRON 4 MG/2 ML VIAL IV PRN ×2 (08:02→08:59)
[2022-03-09 08:17] VITALS: BP 153/94
[2022-03-09] MEDS ORDERED: APIXABAN 2.5 MG TABLET PO SCH (09:21)
[2022-03-09] MEDS ORDERED: SOTALOL 80 MG TABLET PO SCH (09:21)
[2022-03-09] MEDS: MULTIVITAMIN (CENTRUM) TABLET PO SCH (10:07)
[2022-03-09] MEDS: FOLIC ACID 1 MG TABLET PO SCH (10:07)
[2022-03-09] MEDS: CHOLECALCIFEROL 1,000 UNIT TABLET PO SCH (10:07)
[2022-03-09] MEDS: DOCUSATE SODIUM 100 MG CAPSULE PO SCH (10:07)
[2022-03-09] MEDS: PANTOPRAZOLE 40 MG TABLET PO SCH (10:07)
[2022-03-09] MEDS ORDERED: TUBERCULIN SKIN TEST 0.1 ML SYRINGE INTRADERM ONE (10:09)
== END 2022-03-09 13:15 | disposition swing bed (61) | DRG 242 ==
LOC: N.TELES → SUATTDRO 17:10
PROVIDERS: ADMIT Internal Medicine; ATTEND Family Medicine

== ENCOUNTER 2022-03-23 15:52 | Inpatient (IN) ==
[2022-03-23] MEDS ORDERED: ONDANSETRON 4 MG/2 ML VIAL IV PRN (16:00)
[2022-03-23] MEDS ORDERED: hydrALAZINE 20 MG/1 ML VIAL IV PRN (16:00)
[2022-03-23] MEDS ORDERED: ZALEPLON 5 MG CAPSULE PO PRN (16:00)
[2022-03-23] MEDS ORDERED: diphenhydrAMINE CAP 25 MG CAPSULE PO PRN (16:00)
[2022-03-23] MEDS ORDERED: VANCOMYCIN INJ 1,000 MG in SODIUM CHLORIDE 0.9% 250 ML IV SCH (16:30)
[2022-03-23 18:28] LABS: Basophils # 0.1 10*3/uL (0.0-0.2); Basophils % 0.7 % (0.0-0.8); Eosinophils # 0.2 10*3/uL (0.0-0.87); Eosinophils % 1.9 % (0.00-10.9); Hemoglobin 12.7 GM/DL (12.0-16.0); Immature Granulocytes % 0.4 %; Immature Granulocytes Absolute 0.04 #; Lymphocytes # 2.6 10*3/uL (1.4-4.0); Lymphocytes % 22.9 % (21.3-54.2); Mean Corpuscular HGB Conc 33.4 GM/DL (32-36); Mean Corpuscular Volume 102.4 FL (87-102); Mean Platelet Volume 9.6 FL (9.6-12.0); Monocytes # 1.2 10*3/uL (0.11-0.8); Monocytes % 10.5 % (1.7-12.7); Neutrophils % 63.6 % (38.7-73.9); Platelet Count 251 T/CUMM (130-400); Red Blood Count 3.71 MC/CUMM (3.8-5.5); Red Cell Distribution Width 15.1 % (9.3-17.3); White Blood Count 11.2 T/CUMM (4-12)
[2022-03-23 18:45] LABS: Calcium 9.7 MG/DL (8.5-10.1); Osmolality,Calculated 266.5 MOS/KG (273-304); Potassium 3.5 MMOL/L (3.5-5.1)
[2022-03-23 18:49] LABS: Albumin 3.5 G/DL (3.4-5.0); Bilirubin,Direct 0.71 MG/DL (0.0-0.20); Bilirubin,Indirect 1.1 MG/DL (0.0-1.0); Bilirubin,Total 1.8 MG/DL (0.20-1.00); Total Protein 7.9 G/DL (6.4-8.2)
[2022-03-23] MEDS: oxyCODONE/ACETAMINOPHEN 5-325 MG TABLET PO PRN (20:33)
[2022-03-23] MEDS: carvediloL 3.125 MG TABLET PO SCH (22:41)
[2022-03-23] MEDS: SOTALOL 80 MG TABLET PO SCH (22:41)
[2022-03-23] MEDS: SACUBITRIL/VALSARTAN 49-51 MG TABLET PO SCH (22:41)
[2022-03-23] MEDS: DOCUSATE SODIUM 100 MG CAPSULE PO SCH (22:41)
[2022-03-24 05:23] LABS: Basophils # 0.1 10*3/uL (0.0-0.2); Basophils % 0.9 % (0.0-0.8); Eosinophils # 0.2 10*3/uL (0.0-0.87); Eosinophils % 3.7 % (0.00-10.9); Hematocrit 33.8 VOL% (35.7-47.0); Hemoglobin 11.3 GM/DL (12.0-16.0); Immature Granulocytes % 0.3 %; Immature Granulocytes Absolute 0.02 #; Lymphocytes # 2.6 10*3/uL (1.4-4.0); Lymphocytes % 40.6 % (21.3-54.2); Mean Corpuscular HGB Conc 33.4 GM/DL (32-36); Mean Corpuscular Volume 100.6 FL (87-102); Mean Platelet Volume 9.9 FL (9.6-12.0); Monocytes # 0.9 10*3/uL (0.11-0.8); Monocytes % 13.9 % (1.7-12.7); Neutrophils % 40.6 % (38.7-73.9); Platelet Count 223 T/CUMM (130-400); Red Blood Count 3.36 MC/CUMM (3.8-5.5); Red Cell Distribution Width 14.9 % (9.3-17.3); White Blood Count 6.5 T/CUMM (4-12)
[2022-03-24 05:50] LABS: Calcium 9.4 MG/DL (8.5-10.1); Osmolality,Calculated 269.2 MOS/KG (273-304); Potassium 2.6 MMOL/L (3.5-5.1)
[2022-03-24 06:11] LABS: Hyaline Casts,Urine 3 /LPF (0-3); Squamous Epithelial Cell,Urine Occasional /HPF (0-10)
[2022-03-24 06:12] LABS: Bilirubin,Urine Negative (Negative); Blood, Urine Negative (Negative); Glucose,Urine (UA) 100 mg/dL (Negative); Ketones,Urine Negative (Negative); Nitrite,Urine Negative (Negative); Protein,Urine Negative (Negative); Urine Appearance Clear (Clear); Urine Color Yellow (Yellow)
[2022-03-24] MEDS ORDERED: BISACODYL 5 MG TABLET PO ONE (08:26)
[2022-03-24] MEDS ORDERED: BISACODYL 5 MG TABLET PO PRN (08:26)
[2022-03-24] MEDS ORDERED: NON-FORMULARY MEDICATION (Sacubitril-Valsartan [Entresto] 24-26 mg Tablet) PO SCH (09:00)
[2022-03-24] MEDS ORDERED: NON-FORMULARY MEDICATION (Empagliflozin [Jardiance] 10 mg Tablet) PO SCH (09:00)
[2022-03-24] MEDS ORDERED: FUROSEMIDE 40 MG TABLET PO SCH (09:00)
[2022-03-24] MEDS: SOTALOL 80 MG TABLET PO SCH (09:48)
[2022-03-24] MEDS: DOCUSATE SODIUM 100 MG CAPSULE PO SCH ×2 (09:48→20:35)
[2022-03-24] MEDS: carvediloL 3.125 MG TABLET PO SCH (09:48)
[2022-03-24] MEDS: SACUBITRIL/VALSARTAN 49-51 MG TABLET PO SCH ×2 (09:49→20:35)
[2022-03-24] MEDS: PANTOPRAZOLE 40 MG TABLET PO SCH (09:49)
[2022-03-24] MEDS: VANCOMYCIN INJ 1,000 MG in SODIUM CHLORIDE 0.9% 250 ML IV SCH (09:51)
[2022-03-24] MEDS ORDERED: VANCOMYCIN 500 MG VIAL IRRIG ONE (13:58)
[2022-03-24] MEDS ORDERED: diphenhydrAMINE CAP 50 MG CAPSULE PO PRN (14:01)
[2022-03-24] MEDS ORDERED: POTASSIUM CHLORIDE 20 MEQ TABLET PO ONE (14:20)
[2022-03-24] MEDS ORDERED: diphenhydrAMINE CAP 50 MG CAPSULE PO ONE (16:00)
[2022-03-24] MEDS ORDERED: DIAZEPAM 5 MG TABLET PO ONE (16:30)
[2022-03-24] MEDS ORDERED: VANCOMYCIN 500 MG VIAL ONE (17:18)
[2022-03-24] MEDS ORDERED: MIDAZOLAM 2 MG/2 ML VIAL ONE ×2 (17:33→18:00)
[2022-03-24] MEDS ORDERED: fentaNYL 100 MCG/2 ML VIAL ONE (17:33)
[2022-03-24] MEDS ORDERED: HYDROmorphone 1 MG/1 ML SYRINGE ONE (17:56)
[2022-03-24] MEDS ORDERED: ATROPINE 1 MG/10 ML SYRINGE IV PRN (19:12)
[2022-03-24] MEDS: oxyCODONE/ACETAMINOPHEN 5-325 MG TABLET PO PRN (20:39)
[2022-03-25 05:05] LABS: Basophils # 0.1 10*3/uL (0.0-0.2); Basophils % 0.9 % (0.0-0.8); Eosinophils # 0.2 10*3/uL (0.0-0.87); Eosinophils % 3.8 % (0.00-10.9); Hematocrit 33.8 VOL% (35.7-47.0); Hemoglobin 11.2 GM/DL (12.0-16.0); Immature Granulocytes % 0.3 %; Immature Granulocytes Absolute 0.02 #; Lymphocytes # 1.9 10*3/uL (1.4-4.0); Lymphocytes % 29.3 % (21.3-54.2); Mean Corpuscular HGB Conc 33.1 GM/DL (32-36); Mean Platelet Volume 9.8 FL (9.6-12.0); Neutrophils % 50.7 % (38.7-73.9); Platelet Count 220 T/CUMM (130-400); Red Blood Count 3.28 MC/CUMM (3.8-5.5); Red Cell Distribution Width 15.4 % (9.3-17.3); White Blood Count 6.4 T/CUMM (4-12)
[2022-03-25 05:27] LABS: Calcium 8.6 MG/DL (8.5-10.1); Osmolality,Calculated 280.5 MOS/KG (273-304); Potassium 3.4 MMOL/L (3.5-5.1)
[2022-03-25] MEDS ORDERED: POTASSIUM CHLORIDE 20 MEQ TABLET PO ONE (08:25)
[2022-03-25] MEDS ORDERED: METHOCARBAMOL 500 MG TABLET PO PRN (08:26)
[2022-03-25] MEDS ORDERED: NON-FORMULARY MEDICATION (Docusate Sodium Cap [Colace Cap] 100 MG) PO SCH (09:00)
[2022-03-25] MEDS ORDERED: SODIUM CHLORIDE 0.9% 1,000 ML IV SCH (09:00)
[2022-03-25] MEDS: DOCUSATE SODIUM 100 MG CAPSULE PO SCH ×2 (09:10→20:10)
[2022-03-25] MEDS: ENOXAPARIN 40 MG/0.4 ML SYRINGE SUBCUT SCH (09:10)
[2022-03-25] MEDS: ASPIRIN EC 81 MG TABLET PO SCH (09:10)
[2022-03-25] MEDS: POLYETHYLENE GLYCOL POWDER 17 GM PACK PO SCH (09:10)
[2022-03-25] MEDS: PANTOPRAZOLE 40 MG TABLET PO SCH (09:10)
[2022-03-25] MEDS: CHOLECALCIFEROL 1,000 UNIT TABLET PO SCH (09:10)
[2022-03-25] MEDS: FOLIC ACID 1 MG TABLET PO SCH (09:10)
[2022-03-25] MEDS: MULTIVITAMIN (CENTRUM) TABLET PO SCH (09:10)
[2022-03-25] MEDS: VANCOMYCIN INJ 1,000 MG in SODIUM CHLORIDE 0.9% 250 ML IV SCH (09:11)
[2022-03-25] MEDS: oxyCODONE/ACETAMINOPHEN 5-325 MG TABLET PO PRN (09:52)
[2022-03-25] MEDS: traZODone 50 MG TABLET PO SCH (20:08)
[2022-03-26 03:51] LABS: Basophils # 0.1 10*3/uL (0.0-0.2); Basophils % 1.4 % (0.0-0.8); Eosinophils # 0.4 10*3/uL (0.0-0.87); Eosinophils % 5.6 % (0.00-10.9); Hematocrit 32.4 VOL% (35.7-47.0); Hemoglobin 10.7 GM/DL (12.0-16.0); Immature Granulocytes % 0.3 %; Immature Granulocytes Absolute 0.02 #; Lymphocytes # 2.2 10*3/uL (1.4-4.0); Lymphocytes % 33.2 % (21.3-54.2); Mean Corpuscular Volume 102.5 FL (87-102); Mean Platelet Volume 9.7 FL (9.6-12.0); Monocytes # 0.9 10*3/uL (0.11-0.8); Monocytes % 14.2 % (1.7-12.7); Neutrophils % 45.3 % (38.7-73.9); Platelet Count 206 T/CUMM (130-400); Red Blood Count 3.16 MC/CUMM (3.8-5.5); White Blood Count 6.5 T/CUMM (4-12)
[2022-03-26 04:07] LABS: Calcium 8.5 MG/DL (8.5-10.1); Osmolality,Calculated 276.7 MOS/KG (273-304); Potassium 3.2 MMOL/L (3.5-5.1)
[2022-03-26] MEDS ORDERED: POTASSIUM CHLORIDE 20 MEQ TABLET PO ONE (08:21)
[2022-03-26] MEDS: MULTIVITAMIN (CENTRUM) TABLET PO SCH (08:37)
[2022-03-26] MEDS: CHOLECALCIFEROL 1,000 UNIT TABLET PO SCH (08:37)
[2022-03-26] MEDS: PANTOPRAZOLE 40 MG TABLET PO SCH (08:37)
[2022-03-26] MEDS: FOLIC ACID 1 MG TABLET PO SCH (08:37)
[2022-03-26] MEDS: ASPIRIN EC 81 MG TABLET PO SCH (08:37)
[2022-03-26] MEDS: DOCUSATE SODIUM 100 MG CAPSULE PO SCH ×2 (08:38→20:11)
[2022-03-26] MEDS: ENOXAPARIN 40 MG/0.4 ML SYRINGE SUBCUT SCH (08:38)
[2022-03-26] MEDS: oxyCODONE/ACETAMINOPHEN 5-325 MG TABLET PO PRN (08:38)
[2022-03-26] MEDS: POLYETHYLENE GLYCOL POWDER 17 GM PACK PO SCH (08:39)
[2022-03-26] MEDS: VANCOMYCIN INJ 1,000 MG in SODIUM CHLORIDE 0.9% 250 ML IV SCH (08:40)
[2022-03-26] MEDS: LEVOFLOXACIN INJ 500 MG/100 ML PREMIX IV SCH (11:02)
[2022-03-26] MEDS: traZODone 50 MG TABLET PO SCH (21:17)
[2022-03-27 05:59] LABS: Basophils # 0.1 10*3/uL (0.0-0.2); Basophils % 1.2 % (0.0-0.8); Eosinophils # 0.4 10*3/uL (0.0-0.87); Eosinophils % 7.4 % (0.00-10.9); Hematocrit 32.2 VOL% (35.7-47.0); Hemoglobin 10.5 GM/DL (12.0-16.0); Immature Granulocytes % 0.2 %; Immature Granulocytes Absolute 0.01 #; Lymphocytes # 1.4 10*3/uL (1.4-4.0); Lymphocytes % 28.6 % (21.3-54.2); Mean Corpuscular HGB Conc 32.6 GM/DL (32-36); Mean Corpuscular Volume 103.5 FL (87-102); Mean Platelet Volume 10.2 FL (9.6-12.0); Monocytes # 0.7 10*3/uL (0.11-0.8); Monocytes % 14.7 % (1.7-12.7); Neutrophils % 47.9 % (38.7-73.9); Platelet Count 198 T/CUMM (130-400); Red Blood Count 3.11 MC/CUMM (3.8-5.5); Red Cell Distribution Width 15.2 % (9.3-17.3)
[2022-03-27 06:18] LABS: Calcium 9.1 MG/DL (8.5-10.1); Potassium 3.9 MMOL/L (3.5-5.1)
[2022-03-27] MEDS: MULTIVITAMIN (CENTRUM) TABLET PO SCH (08:27)
[2022-03-27] MEDS: ENOXAPARIN 40 MG/0.4 ML SYRINGE SUBCUT SCH (08:27)
[2022-03-27] MEDS: POLYETHYLENE GLYCOL POWDER 17 GM PACK PO SCH (08:27)
[2022-03-27] MEDS: PANTOPRAZOLE 40 MG TABLET PO SCH (08:27)
[2022-03-27] MEDS: ASPIRIN EC 81 MG TABLET PO SCH (08:27)
[2022-03-27] MEDS: DOCUSATE SODIUM 100 MG CAPSULE PO SCH ×2 (08:27→20:17)
[2022-03-27] MEDS: CHOLECALCIFEROL 1,000 UNIT TABLET PO SCH (08:27)
[2022-03-27] MEDS: FOLIC ACID 1 MG TABLET PO SCH (08:27)
[2022-03-27] MEDS: ACETIC ACID 0.25% IRRIGATION 1,000 ML BOTTLE IRRIG SCH (09:06)
[2022-03-27] MEDS: VANCOMYCIN INJ 1,000 MG in SODIUM CHLORIDE 0.9% 250 ML IV SCH (09:06)
[2022-03-27] MEDS: LEVOFLOXACIN INJ 500 MG/100 ML PREMIX IV SCH (12:08)
[2022-03-27] MEDS ORDERED: ACETIC ACID 0.25% IRRIGATION 1,000 ML BOTTLE IRRIG SCH (12:30)
[2022-03-27] MEDS: oxyCODONE/ACETAMINOPHEN 5-325 MG TABLET PO PRN (13:00)
[2022-03-27] MEDS ORDERED: ACETIC ACID 0.25% IRRIG PRN (13:43)
[2022-03-27] MEDS: traZODone 50 MG TABLET PO SCH (20:17)
[2022-03-28] MEDS: ACETIC ACID 0.25% IRRIGATION 1,000 ML BOTTLE IRRIG SCH (09:21)
[2022-03-28] MEDS: ASPIRIN EC 81 MG TABLET PO SCH (09:22)
[2022-03-28] MEDS: MULTIVITAMIN (CENTRUM) TABLET PO SCH (09:22)
[2022-03-28] MEDS: ENOXAPARIN 40 MG/0.4 ML SYRINGE SUBCUT SCH (09:23)
[2022-03-28] MEDS: DOCUSATE SODIUM 100 MG CAPSULE PO SCH ×2 (09:23→20:47)
[2022-03-28] MEDS: FOLIC ACID 1 MG TABLET PO SCH (09:23)
[2022-03-28] MEDS: PANTOPRAZOLE 40 MG TABLET PO SCH (09:24)
[2022-03-28] MEDS: POLYETHYLENE GLYCOL POWDER 17 GM PACK PO SCH (09:24)
[2022-03-28] MEDS: CHOLECALCIFEROL 1,000 UNIT TABLET PO SCH (09:24)
[2022-03-28] MEDS: LEVOFLOXACIN INJ 500 MG/100 ML PREMIX IV SCH (13:16)
[2022-03-28] MEDS: oxyCODONE/ACETAMINOPHEN 5-325 MG TABLET PO PRN ×2 (14:51→23:32)
[2022-03-28] MEDS: traZODone 50 MG TABLET PO SCH (20:47)
[2022-03-29 08:57] LABS: Basophils # 0.1 10*3/uL (0.0-0.2); Eosinophils # 0.6 10*3/uL (0.0-0.87); Eosinophils % 9.3 % (0.00-10.9); Hematocrit 34.6 VOL% (35.7-47.0); Hemoglobin 11.6 GM/DL (12.0-16.0); Immature Granulocytes % 0.2 %; Immature Granulocytes Absolute 0.01 #; Lymphocytes # 1.8 10*3/uL (1.4-4.0); Mean Corpuscular HGB Conc 33.5 GM/DL (32-36); Mean Corpuscular Volume 102.1 FL (87-102); Mean Platelet Volume 9.6 FL (9.6-12.0); Monocytes # 0.8 10*3/uL (0.11-0.8); Neutrophils % 45.5 % (38.7-73.9); Platelet Count 206 T/CUMM (130-400); Red Blood Count 3.39 MC/CUMM (3.8-5.5); Red Cell Distribution Width 15.3 % (9.3-17.3); White Blood Count 5.9 T/CUMM (4-12)
[2022-03-29] MEDS: ACETIC ACID 0.25% IRRIGATION 1,000 ML BOTTLE IRRIG SCH (09:00)
[2022-03-29] MEDS: CHOLECALCIFEROL 1,000 UNIT TABLET PO SCH (09:01)
[2022-03-29] MEDS: POLYETHYLENE GLYCOL POWDER 17 GM PACK PO SCH (09:01)
[2022-03-29] MEDS: FOLIC ACID 1 MG TABLET PO SCH (09:01)
[2022-03-29] MEDS: ASPIRIN EC 81 MG TABLET PO SCH (09:01)
[2022-03-29] MEDS: PANTOPRAZOLE 40 MG TABLET PO SCH (09:01)
[2022-03-29] MEDS: MULTIVITAMIN (CENTRUM) TABLET PO SCH (09:01)
[2022-03-29] MEDS: ENOXAPARIN 40 MG/0.4 ML SYRINGE SUBCUT SCH (09:01)
[2022-03-29] MEDS: DOCUSATE SODIUM 100 MG CAPSULE PO SCH ×2 (09:02→21:18)
[2022-03-29 09:19] LABS: Calcium 9.1 MG/DL (8.5-10.1); Osmolality,Calculated 271.8 MOS/KG (273-304); Potassium 4.1 MMOL/L (3.5-5.1)
[2022-03-29] MEDS: LEVOFLOXACIN INJ 500 MG/100 ML PREMIX IV SCH (16:13)
[2022-03-29] MEDS: oxyCODONE/ACETAMINOPHEN 5-325 MG TABLET PO PRN (21:18)
[2022-03-29] MEDS: traZODone 50 MG TABLET PO SCH (21:18)
[2022-03-30 05:43] LABS: Basophils # 0.1 10*3/uL (0.0-0.2); Basophils % 1.2 % (0.0-0.8); Eosinophils # 0.6 10*3/uL (0.0-0.87); Eosinophils % 9.3 % (0.00-10.9); Hemoglobin 11.3 GM/DL (12.0-16.0); Immature Granulocytes % 0.3 %; Immature Granulocytes Absolute 0.02 #; Lymphocytes # 2.1 10*3/uL (1.4-4.0); Mean Corpuscular HGB Conc 33.2 GM/DL (32-36); Mean Corpuscular Volume 102.7 FL (87-102); Mean Platelet Volume 10.2 FL (9.6-12.0); Monocytes # 0.7 10*3/uL (0.11-0.8); Monocytes % 11.4 % (1.7-12.7); Neutrophils % 41.8 % (38.7-73.9); Platelet Count 211 T/CUMM (130-400); Red Blood Count 3.31 MC/CUMM (3.8-5.5); White Blood Count 5.9 T/CUMM (4-12)
[2022-03-30 06:09] LABS: Calcium 9.5 MG/DL (8.5-10.1); Osmolality,Calculated 266.2 MOS/KG (273-304); Potassium 3.8 MMOL/L (3.5-5.1)
[2022-03-30] MEDS: ACETIC ACID 0.25% IRRIGATION 1,000 ML BOTTLE IRRIG SCH (07:40)
[2022-03-30] MEDS: ASPIRIN EC 81 MG TABLET PO SCH (09:04)
[2022-03-30] MEDS: PANTOPRAZOLE 40 MG TABLET PO SCH (09:04)
[2022-03-30] MEDS: DOCUSATE SODIUM 100 MG CAPSULE PO SCH ×2 (09:04→22:03)
[2022-03-30] MEDS: MULTIVITAMIN (CENTRUM) TABLET PO SCH (09:04)
[2022-03-30] MEDS: CHOLECALCIFEROL 1,000 UNIT TABLET PO SCH (09:05)
[2022-03-30] MEDS: ENOXAPARIN 40 MG/0.4 ML SYRINGE SUBCUT SCH (09:05)
[2022-03-30] MEDS: FOLIC ACID 1 MG TABLET PO SCH (09:05)
[2022-03-30] MEDS: POLYETHYLENE GLYCOL POWDER 17 GM PACK PO SCH (09:09)
[2022-03-30] MEDS: LEVOFLOXACIN INJ 500 MG/100 ML PREMIX IV SCH (15:20)
[2022-03-30] MEDS: SACUBITRIL/VALSARTAN 49-51 MG TABLET PO SCH (22:03)
[2022-03-30] MEDS: traZODone 50 MG TABLET PO SCH (22:03)
[2022-03-30] MEDS: oxyCODONE/ACETAMINOPHEN 5-325 MG TABLET PO PRN (22:18)
[2022-03-31 05:06] LABS: Basophils # 0.1 10*3/uL (0.0-0.2); Basophils % 1.1 % (0.0-0.8); Eosinophils # 0.6 10*3/uL (0.0-0.87); Eosinophils % 8.8 % (0.00-10.9); Hematocrit 33.5 VOL% (35.7-47.0); Hemoglobin 11.2 GM/DL (12.0-16.0); Immature Granulocytes % 0.3 %; Immature Granulocytes Absolute 0.02 #; Lymphocytes # 2.2 10*3/uL (1.4-4.0); Lymphocytes % 34.6 % (21.3-54.2); Mean Corpuscular HGB Conc 33.4 GM/DL (32-36); Mean Corpuscular Volume 101.8 FL (87-102); Monocytes # 0.8 10*3/uL (0.11-0.8); Monocytes % 12.4 % (1.7-12.7); Neutrophils % 42.8 % (38.7-73.9); Platelet Count 195 T/CUMM (130-400); Red Blood Count 3.29 MC/CUMM (3.8-5.5); Red Cell Distribution Width 15.1 % (9.3-17.3); White Blood Count 6.3 T/CUMM (4-12)
[2022-03-31 05:33] LABS: Calcium 9.5 MG/DL (8.5-10.1); Osmolality,Calculated 260.7 MOS/KG (273-304); Potassium 3.8 MMOL/L (3.5-5.1)
[2022-03-31] MEDS: ASPIRIN EC 81 MG TABLET PO SCH (08:26)
[2022-03-31] MEDS: PANTOPRAZOLE 40 MG TABLET PO SCH (08:26)
[2022-03-31] MEDS: MULTIVITAMIN (CENTRUM) TABLET PO SCH (08:26)
[2022-03-31] MEDS: SACUBITRIL/VALSARTAN 49-51 MG TABLET PO SCH (08:26)
[2022-03-31] MEDS: CHOLECALCIFEROL 1,000 UNIT TABLET PO SCH (08:26)
[2022-03-31] MEDS: FOLIC ACID 1 MG TABLET PO SCH (08:26)
[2022-03-31] MEDS: ENOXAPARIN 40 MG/0.4 ML SYRINGE SUBCUT SCH (08:27)
[2022-03-31] MEDS: POLYETHYLENE GLYCOL POWDER 17 GM PACK PO SCH (08:27)
[2022-03-31] MEDS: DOCUSATE SODIUM 100 MG CAPSULE PO SCH (08:27)
[2022-03-31 11:35] VITALS: BP 115/64
[2022-03-31] MEDS: ACETIC ACID 0.25% IRRIGATION 1,000 ML BOTTLE IRRIG SCH (12:10)
== END 2022-03-31 15:15 | disposition home or self-care (01) | DRG 261 ==
LOC: INTOOBSV 17:08 → N.TELEN 17:08 → N.CC 03-24 18:46 → N.TELEN 03-30 15:30
PROVIDERS: ADMIT Internal Medicine Cardiovascular Disease; ATTEND Internal Medicine Cardiovascular Disease